=== PATIENT | male | born 1930 | race Caucasian/White ===

== ENCOUNTER 2018-01-11 19:40 | Inpatient (IN) | payer MEDICARE ==
[~2018-01-11] VITALS: Ht 185.4 cm; Wt 82.6 kg
--- NOTE | 2018-01-11 19:40 | NUR ---
PT DAKSHAA BLS TO ER BED 09
[2018-01-11 19:43] VITALS: BP 129/77
[2018-01-11] MEDS ORDERED: NACL 0.9% 500 ML IV SCH (19:43)
[2018-01-11] MEDS ORDERED: NACL 0.9% 500 ML IV ONE (19:45)
--- NOTE | 2018-01-11 19:53 | NUR ---
87/M BIBA. PER CARE, PT WAS FOUND BY FAMILY "HAVING A HARD TIME GETTING AROUND." PT C/O GENERALIZED WEAKNESS X1 DAY. SKIN IS INTACT, PINK/WARM/DRY; AAOX4, PERRL, BEDREST AT THIS TIME, WALKER ASSISTED AT HOME; PT GUARDED, FLAT, FATIGUED. LUNGS CLEAR BL, BREATHING UNLABORED; HR EVEN AND REGULAR, BL PERIPHERAL PULSES PRESENT; BS ACTIVE X4, NO TENDERNESS TO PALPATION; PT DENIES ANY FEVER, CP, SOB, OR COUGH, N/V/D, DYSURIA AT THIS TIME; PT STATES 0/10 PAIN AT THIS TIME; VSS; PATIENT POSITIONED FOR COMFORT; HOB ELEVATED; BEDRAILS UP X2; BED DOWN.
--- NOTE | 2018-01-11 20:05 | NUR ---
PATIENT UNABLE TO PROVIDE URINE AT THIS TIME.
[2018-01-11 20:17] LABS: BASOPHILS % (AUTO) 0.3 % (0.0-2.0); EOSINOPHILS # (AUTO) 0.1 K/uL (0-0.4); EOSINOPHILS % (AUTO) 1.6 % (0.0-4.0); HEMATOCRIT 37.5 % (36-52); HEMOGLOBIN 12.7 g/dL (12.0-18.0); LYMPHOCYTES % (AUTO) 17.2 % (20.5-51.1); MEAN CORPUSCULAR HEMOGLOBIN 34 pg (27-31); MEAN CORPUSCULAR HGB CONC 34 g/dL (33-37); MEAN CORPUSCULAR VOLUME 100.4 fL (80-94); MONOCYTES # (AUTO) 0.4 K/uL (0.8-1.0); MONOCYTES % (AUTO) 7.6 % (1.7-9.3); NEUTROPHILS # (AUTO) 4.3 K/uL (1.8-7.7); NEUTROPHILS % (AUTO) 73.3 % (42.2-75.2); PLATELET COUNT (AUTO) 195 K/uL (140-450); RED BLOOD CELL COUNT(AUTO) 3.73 MIL/uL (4.20-6.10); RED CELL DISTRIBUTION WIDTH 13.6 % (11.6-13.7); WHITE BLOOD COUNT (AUTO) 5.9 K/uL (4.8-10.8)
[2018-01-11 20:34] LABS: ANION GAP 9.4 (8-16); CARBON DIOXIDE 30.5 mmol/L (21-32); CHLORIDE 108 mmol/L (98-107); CREATININE 1.2 mg/dL (0.7-1.3); GLUCOSE 115 mg/dL (74-106); POTASSIUM 3.9 mmol/L (3.5-5.1); SODIUM SERUM 144 mmol/L (136-145); UREA NITROGEN, BLOOD 28 mg/dL (7-18)
[2018-01-11 20:36] LABS: PROTHROMBIN TIME 11.6 secs (10.8-13.4)
[2018-01-11 20:40] LABS: ALBUMIN 3.1 g/dL (3.4-5.0); ASPARTATE AMINOTRANSFERASE 28 U/L (15-37); TOTAL BILIRUBIN 0.4 mg/dL (0.0-1.0)
--- NOTE | 2018-01-11 20:49 | NUR ---
ATTEMPTED TO COLLECT URINE, PT UNABLE TO COLLECT URINE AT THIS TIME, WILL ATTEMPT LATER
--- NOTE | 2018-01-11 21:55 | NUR ---
PT RESTING COMFORTABLY IN BED, RR EVEN AND UNLABORED. ALL NEEDS MET AT THIS TIME.
[2018-01-11] MEDS ORDERED: ACETAMINOPHEN 325 MG TAB PO PRN (22:35)
[2018-01-11] MEDS ORDERED: SIMV40TA1 PO (22:53)
--- NOTE | 2018-01-11 23:22 | NUR ---
Patient will be admitted to care of DR ZAMUDIO. Admited to TELE. Will go to room 107B. Belongings list completed. Report to SHAHRZAD JANE AT BEDSIDE
--- NOTE | 2018-01-11 23:30 | NUR ---
ADMITTED THIS 87 YEAR OLD MALE FROM ER PER MIGUEL WITH CC OF GENERALIZED WEAKNESS, AMBULATORY TO BED WITH ASSIST, ASSESSMENT DONE, PT AAOX3, FORGETFUL, ABLE TO FOLLOW COMMANDS, VITAL SIGNS STABLE, DENIES ANY PAIN, SKIN INTACT, ORIENTED TO ROOM AND CALL LIGHT, SAFETY MEASURES IN PLACE, SIDE RAILS UP AND BED ALARM ON, CALL LIGHT WITHIN REACH.
[2018-01-11 23:40] VITALS: BP 139/75
[2018-01-11] MEDS: NACL 0.9% 1,000 ML IV SCH (23:42)
[2018-01-11 23:44] LABS: APPEARANCE,URINE SL CLOUDY (CLEAR); BILIRUBIN,URINE NEGATIVE (NEGATIVE); BLOOD, URINE 3+ (NEGATIVE); COLOR,URINE YELLOW (YELLOW); LEUKOCYTE ESTERASE ,URINE 1+ (NEGATIVE); NITRITE, URINE NEGATIVE (NEGATIVE); PH,URINE 6.5 (5.0-9.0); UGLUCOSE NEGATIVE (NEGATIVE)
[2018-01-11 23:50] LABS: CHOL/HDL RATIO 2.4 (1-4.5); FREE T4 (FREE THYROXINE) 0.92 ng/dL (0.76-1.46); PHOSPHORUS 3.2 mg/dL (2.5-4.9); THYROID STIMULATING HORMONE 1.62 uIU/mL (0.34-3.74)
[2018-01-12 00:16] LABS: RBC,URINE TOO NUMEROUS TO COUN /HPF (0-5); WBC,URINE 80-100 /HPF (0-5)
--- NOTE | 2018-01-12 03:45 | NUR ---
PT TRIGGERED BED ALARM, PT TRYING TO GET OOB, IV OUT, CANNULA INTACT, PT WANTS TO GO TO BR, REINFORCE IN USING CALL LIGHT FOR ASSISTANCE, AMBULATED TO BR WITH MINIMAL ASSIST, VOIDED FREELY, VITAL SIGNS STABLE, DENIES ANY PAIN, NEW IV LINE STARTED ON RT FA GAUGE 22, IVF RESUMED, SIDE RAILS UP AND BED ALARM ON, MONITORED CLOSELY.
[2018-01-12 04:00] VITALS: BP 140/72
--- NOTE | 2018-01-12 05:05 | NUR ---
TALKED TO DR VALDIVIA REGARDING PT DOESN'T HAVE ANY DIET ORDER, HE SAID HE WILL PUT AN ORDER.
--- NOTE | 2018-01-12 05:30 | NUR ---
HEARD PT CALLING OUT "NURSE", SEEN PT AWAKE WANTS TO GO TO RESTROOM TO VOID, AMBULATED WITH MINIMAL ASSIST AND VOIDED FREELY, REINFORCE TO USE CALL LIGHT FOR ASSISTANCE, CALL LIGHT WITHIN REACH, SIDE RAILS UP AND BED ALARM ON, MONITORED CLOSELY.
--- NOTE | 2018-01-12 06:35 | NUR ---
PT SLEEPING, EASILY AROUSABLE, NO DISTRESS NOTED, SCD'S APPLIED TO BLE, MONITORED CLOSELY.
--- NOTE | 2018-01-12 06:49 | NUR ---
PATIENT HAS BEEN SCREENED AND CATEGORIZED MODERATE NUTRITION RISK. PATIENT WILL BE SEEN WITHIN 3-5 DAYS OF ADMISSION. 01/14/18-01/16/[address]
[2018-01-12] MEDS ORDERED: ACETAMINOPHEN 325 MG TAB PO PRN (07:15)
[2018-01-12] MEDS ORDERED: LORazepam 2 MG/ML VIAL IVP PRN (07:15)
[2018-01-12] MEDS ORDERED: POTASSIUM CHLORIDE 10 MEQ TABER PO PRN (07:15)
[2018-01-12] MEDS ORDERED: DOCUSATE SODIUM 100 MG GELCAP PO PRN (07:15)
--- NOTE | 2018-01-12 07:15 | NUR ---
PT AWAKE, NO SIGNS OF DISTRESS, REPORT GIVEN TO BUCK MADSEN FOR CONTINUITY OF CARE.
--- NOTE | 2018-01-12 07:16 | NUR ---
RECEIVED REPORT FROM RESTAURANT HOSTESS RN. PATIENT IS AAOX2 OR 3. HAS NO SIGNS AND SYMPTOMS OF ACUTE DISTRESS NOTED AT THIS TIME. HAS IV TO THE RIGHT FA 22G, RUNNING NS AT 50 ML/HR. SITE IS CLEAN, DRY, PATENT, AND INTACT. DISCUSSED PLAN OF CARE WITH PATIENT AND HE VERBALIZED UNDERSTANDING. HAS SCD'S ON. BED ALARM IS ON. FALL PRECAUTIONS ARE IN PLACE. BED IN LOWEST POSITION, SIDE RAILS UP X2, CALL LIGHT WITHIN REACH. WILL CONTINUE TO MONITOR.
[2018-01-12 08:00] VITALS: BP 140/72
--- NOTE | 2018-01-12 09:35 | NUR ---
SPOKE WITH PATIENTS REGARDING THE ADVANCED DIRECTIVE. SHE SAID SHE DOESN'T KNOW WHAT IT SAYS THAT MR TERRELL DOCTOR HAS IT. INFORMED HER THAT MR SOLOMON STATED TO THE HOP FARMER RN THAT IF ANYTHING HAPPENED HE DIDN'T WANT TO BE RESUSCITATED. SHE STATED SHE DIDN'T WANT TO TALK ABOUT THAT RIGHT NOW AND WOULD JUST LIKE TO TALK TO HER . INFORMED HER THAT HE WILL STAY A FULL CODE UNTIL FURTHER NOTICE. SHE SAID WELL THAT IS UP TO HIM.
[2018-01-12] MEDS: PANTOPRAZOLE 40 MG INJ VIAL IVP SCH (10:24)
[2018-01-12] MEDS: DOCUSATE SODIUM 100 MG GELCAP PO SCH ×2 (10:24→21:00)
[2018-01-12] MEDS ORDERED: ASPIRIN 325 MG TABEC PO SCH ×2 (10:58→12:00)
[2018-01-12] MEDS ORDERED: ECOTRIN 81 MG TABEC PO SCH (11:00)
[2018-01-12 12:00] VITALS: BP 131/65
[2018-01-12 16:00] VITALS: BP 108/64
--- NOTE | 2018-01-12 19:25 | NUR ---
ENDORSED PATIENT TO MANAGEMENT LIAISON RN FOR CONTINUITY OF CARE. PATIENT IN STABLE CONDITION.
--- NOTE | 2018-01-12 19:30 | NUR ---
RECEIVED REPORT FROM DAY SHIFT, PATIENT RESTING IN BED, AWAKE AND ORIENTED X2, NO S/S OF DISTRESS NOTED, RESPIRATION EVEN AND UNLABORED, ON ROOM AIR. IV TO THE RT FOREARM, PATENT AND INTACT. PLAN OF CARE DISCUSSED, PATIENT VERBALIZED UNDERSTANDING, CALL LIGHT WITHIN REACH, SAFETY MEASURE ENSURED, WILL CONTINUE TO MONITOR.
[2018-01-12 20:00] VITALS: BP 127/60
[2018-01-12] MEDS: NACL 0.9% 1,000 ML IV SCH (20:19)
--- NOTE | 2018-01-12 20:55 | NUR ---
PATIENT'S SON CAME AND TOLD ME THAT HE FORGOT TO BRING THE CODE STATUS PAPER. EXPLAINED TO THE SON THAT IF WE DON'T HAVE THE DNR PAPER ON FILE, IF ANYTHING HAPPENED, WE HAVE TO PROVIDE FULL CODE CARE. PATIENT'S SON VERBALIZED UNDERSTANDING, AND SAID," I WILL BRING IT TOMORROW."
[2018-01-12] MEDS: SIMVASTATIN 40 MG TAB PO SCH (21:00)
--- NOTE | 2018-01-12 22:09 | NUR ---
PATIENT WAS TRYING TO GET OUT OF THE BED AND YELLING," WHERE AM I, WHERE AM I." ASSISTED HIM BACK TO BED, BUT PATIENT BECAME AGITATED AND REFUSED TO STAY IN BED. BP 131/66, HR 60, RR 21, ATIVAN ADMINISTER ORDERED. SAFETY MEASURE ENSURED, WILL CONTINUE TO MONITOR.
--- NOTE | 2018-01-12 23:38 | NUR ---
PATIENT ASKED FOR FOOD. SANDWICH OFFERED, NO S/S OF DISTRESS NOTED, RESPIRATION EVEN AND UNLABORED, ON ROOM AIR. CALL LIGHT WITHIN REACH, SAFETY MEASURE ENSURED, WILL CONTINUE TO MONITOR.
[2018-01-12 23:40] VITALS: BP 136/70
--- NOTE | 2018-01-13 00:55 | NUR ---
PATIENT TRYING TO GET OUT OF THE BED, ASSISTED HIM BACK TO BED, NO S/S OF DISTRESS NOTED, RESPIRATION EVEN AND UNLABORED, CALL LIGHT WITHIN REACH, SAFETY MEASURE ENSURED, BED ALARM ON, WILL CONTINUE TO MONITOR.
--- NOTE | 2018-01-13 01:30 | NUR ---
PATIENT TRYING TO GET OUT OF BED, ASSISTED PATIENT TO THE RESTROOM, VOIDED X1, ASSISTED PATIENT BACK TO BED, CALL LIGHT WITHIN REACH, SAFETY MEASURE ENSURED, WILL CONTINUE TO MONITOR.
--- NOTE | 2018-01-13 02:36 | NUR ---
PT TRYING TO GET OUT OF THE BED, ASSISTED HIM BACK TO BED, PATIENT REFUSED STAYING IN BED AND BECAME AGITATED AND SAID," I HAVE TO LEAVE, I DON'T WANT STAY HERE." INFORMED PATIENT THAT HE IS IN THE HOSPITAL, BUT PATIENT STILL TRYING TO GET OUT OF THE BED, BP 141/70, HR 60, ATIVAN ADMINISTERED ORDERED. CALL LIGHT WITHIN REACH, SAFETY MEASURE ENSURED, WILL CONTINUE TO MONITOR.
[2018-01-13 04:00] VITALS: BP 134/71
--- NOTE | 2018-01-13 05:47 | NUR ---
NOTED BLOODY URINE, MADE DR. VALDIVIA AWARE. NO ORDER RECEIVED AT THIS TIME.
[2018-01-13 06:35] LABS: BASOPHILS % (AUTO) 0.6 % (0.0-2.0); EOSINOPHILS # (AUTO) 0.3 K/uL (0-0.4); EOSINOPHILS % (AUTO) 3.9 % (0.0-4.0); HEMATOCRIT 37.2 % (36-52); HEMOGLOBIN 12.7 g/dL (12.0-18.0); LYMPHOCYTES # (AUTO) 1.3 K/uL (2.0-11.5); LYMPHOCYTES % (AUTO) 18.4 % (20.5-51.1); MEAN CORPUSCULAR HEMOGLOBIN 34 pg (27-31); MEAN CORPUSCULAR HGB CONC 34 g/dL (33-37); MEAN CORPUSCULAR VOLUME 100.4 fL (80-94); MONOCYTES # (AUTO) 0.5 K/uL (0.8-1.0); MONOCYTES % (AUTO) 6.5 % (1.7-9.3); NEUTROPHILS # (AUTO) 5.1 K/uL (1.8-7.7); NEUTROPHILS % (AUTO) 70.6 % (42.2-75.2); PLATELET COUNT (AUTO) 185 K/uL (140-450); RED BLOOD CELL COUNT(AUTO) 3.71 MIL/uL (4.20-6.10); RED CELL DISTRIBUTION WIDTH 13.6 % (11.6-13.7); WHITE BLOOD COUNT (AUTO) 7.3 K/uL (4.8-10.8)
[2018-01-13 07:01] LABS: ANION GAP 7.9 (8-16); CARBON DIOXIDE 27.1 mmol/L (21-32); CHLORIDE 105 mmol/L (98-107); CREATININE 1.1 mg/dL (0.7-1.3); GLUCOSE 116 mg/dL (74-106); SODIUM SERUM 137 mmol/L (136-145); UREA NITROGEN, BLOOD 20 mg/dL (7-18)
--- NOTE | 2018-01-13 07:28 | NUR ---
ENDORSED PLAN OF CARE TO DAY SHIFT, PATIENT RESTING IN BED, IN STABLE CONDITION.
--- NOTE | 2018-01-13 07:29 | NUR ---
RECEIVED REPORT FROM FIRE EXTINGUISHER MECHANIC RN. PATIENT IS AAOX 1. HAS NO SIGNS AND SYMPTOMS OF ACUTE DISTRESS NOTED AT THIS TIME. HAS IV TO THE RIGHT FA 22G, RUNNING NS AT 50 ML/HR. SITE IS CLEAN, DRY, PATENT, AND INTACT. DISCUSSED PLAN OF CARE WITH PATIENT AND REINFORCEMENT IS NEEDED. HAS SCD'S ON. BED ALARM IS ON. FALL PRECAUTIONS ARE IN PLACE. BED IN LOWEST POSITION, SIDE RAILS UP X3, CALL LIGHT WITHIN REACH. WILL CONTINUE TO MONITOR.
[2018-01-13 08:00] VITALS: BP 145/78
--- NOTE | 2018-01-13 08:20 | NUR ---
ASSISTED PATIENT TO THE RESTROOM BUT HE DIDN'T MAKE IT ALL THE WAY AND URINATED ON THE FLOOR. NOTICED A RED TINGE TO THE URINE.
[2018-01-13] MEDS: LACTOBACILLUS RHAMNOSUS GG 1 EACH CAP PO SCH (09:32)
[2018-01-13] MEDS: DOCUSATE SODIUM 100 MG GELCAP PO SCH ×2 (09:33→20:54)
[2018-01-13] MEDS: ECOTRIN 81 MG TABEC PO SCH (09:33)
[2018-01-13] MEDS: PANTOPRAZOLE 40 MG INJ VIAL IVP SCH (09:34)
--- NOTE | 2018-01-13 11:40 | NUR ---
PATIENTS URINE IN URINAL IS DARK BROWN. LET DR TANNER KNOW AND SHE IS AWARE ALREADY. STATED IT IS BECAUSE OF THE UTI. NO NEW ORDERS AT THIS TIME.
[2018-01-13 12:00] VITALS: BP 138/69
[2018-01-13] MEDS ORDERED: KCL 20 MEQ/WATER INJ PREMIX 200 ML IV SCH (13:00)
[2018-01-13] MEDS: CHLORHEXADINE GLUC 2% CLOTH TP SCH (14:32)
[2018-01-13] MEDS: MUPIROCIN 2% OINT 22 GM TUBE TP SCH (14:34)
--- NOTE | 2018-01-13 15:20 | NUR ---
LET DR NELSON KNOW THAT PATIENTS URINE IS STILL DARK BROWN. SHE ORDERED AN ULTRASOUND OF THE KIDNEYS.
[2018-01-13 16:00] VITALS: BP 133/64
--- NOTE | 2018-01-13 19:30 | NUR ---
ENDORSED PATIENT TO ACCT EXEC RN FOR CONTINUITY OF CARE. PATIENT IN STABLE CONDITION.
--- NOTE | 2018-01-13 19:31 | NUR ---
RECEIVED REPORT FROM DAY SHIFT NURSE. AAOX1. NO S/S OF DISTRESS. NO C/O PAIN. IV TO RIGHT HAND #20G, K RIDER INFUSING WELL. SAFETY PRECAUTION IN PLACE. CALL LIGHT WITHIN REACH.
[2018-01-13 20:00] VITALS: BP 132/71
[2018-01-13] MEDS: NACL 0.9% 1,000 ML IV SCH (20:00)
[2018-01-13] MEDS: SIMVASTATIN 40 MG TAB PO SCH (20:54)
--- NOTE | 2018-01-13 21:05 | NUR ---
DUE MEDS GIVEN. PT TOLERATED WELL. NO C/O PAIN OR DISCOMFORT NOTED.
--- NOTE | 2018-01-13 22:50 | NUR ---
PT TRYING TO GET OUT OF THE BED. ASSISTED BACK TO BED. PT CONFUSED. SAFETY PRECAUTION IN PLACE.
--- NOTE | 2018-01-13 23:15 | NUR ---
INFORMED DR. LAL PT CONFUSED AND STILL TRYING TO GET OUT OF THE BED. PER DR. LAL, HE WILL ORDER SEROQUEL 25 MG PO. WILL CARRY OUT ORDER.
[2018-01-13] MEDS: QUEtiapine FUMARATE 25 MG TAB PO PRN (23:23)
--- NOTE | 2018-01-13 23:25 | NUR ---
SEROQUEL 25 MG PO GIVEN. PT ASKED FOR CEREAL WITH MILK. CEREAL WITH MILK PROVIDED AND ASSISTED PT TO EAT. PT TOLERATED WELL.
[2018-01-13] MEDS ORDERED: QUEtiapine FUMARATE 25 MG TAB PO SCH (23:45)
[2018-01-14] VITALS: BP 146/77
--- NOTE | 2018-01-14 00:45 | NUR ---
PT STILL TRYING TO GET OUT OF BED. ORDERED SEROQUEL 25 MG PO ONCE GIVEN. DR. LAL IN THE ROOM TALKING TO PT.
[2018-01-14] MEDS ORDERED: LORazepam 2 MG/ML VIAL ONE (01:08)
--- NOTE | 2018-01-14 01:12 | NUR ---
PT STILL TRYING TO GET OUT OF BED, AGITATED. DR. LAL ORDERED ATIVAN 1 MG IVP, GIVEN.
[2018-01-14] MEDS ORDERED: LORazepam 2 MG/ML VIAL IM/IVP SCH (01:30)
[2018-01-14] MEDS ORDERED: HALOPERIDOL IM 5 MG/ML VIAL IM ONE (01:30)
[2018-01-14] MEDS ORDERED: HALOPERIDOL IM 5 MG/ML VIAL ONE (01:34)
--- NOTE | 2018-01-14 01:40 | NUR ---
PT TRYING TO GET OUT OF BED. ORDERED HALDOL 5MG IM GIVEN. Addendum: 01/14/18 at 0307 by Lizbeth Ramos RN WRONG TIME
--- NOTE | 2018-01-14 02:26 | NUR ---
PT TRYING TO GET OUT OF BED. ORDERED HALDOL 5MG IM GIVEN
--- NOTE | 2018-01-14 02:46 | NUR ---
PT SLEEPING. NO DISTRESS NOTED. SAFETY PRECAUTION IN PLACE.
--- NOTE | 2018-01-14 03:00 | NUR ---
PT AWAKE AND TRYING TO GET OUT OF BED. PT DOESN'T KNOW WHERE HE WANTS TO GO. ASSISTED BACK TO BED. FALL PRECAUTION IN PLACE.
--- NOTE | 2018-01-14 03:30 | NUR ---
PT SLEPT FOR 5-10 MINS THEN WOKE UP TRYING TO GET OUT OF BED. ASSISTED BACK TO BED BUT STILL TRYING TO GET UP. SAFETY PRECAUTION IN PLACE.
[2018-01-14 04:00] VITALS: BP 132/74
[2018-01-14] MEDS ORDERED: diphenhydrAMINE 50 MG/ML VIAL IVP SCH (04:00)
--- NOTE | 2018-01-14 04:40 | NUR ---
PT VOIDED WITH DARK BROWN URINE. NO C/O PAIN OR DISCOMFORT. Addendum: 01/14/18 at 0737 by Lizbeth Ramos RN DAY SHIFT RESIDENT/DOCTOR AWARE OF DARK BROWN URINE AND ORDERED RENAL ULTRASOUND.
--- NOTE | 2018-01-14 05:05 | NUR ---
PT STILL TRYING TO GET OUT OF BED. DR. LAL ORDERED BENADRYL 25 MG IVP, GIVEN. NO DISTRESS NOTED.
--- NOTE | 2018-01-14 06:30 | NUR ---
PT SLEEPING. NO S/S OF DISTRESS NOTED. PT KEPT DRY AND COMFORTABLE. SAFETY PRECAUTION IN PLACE.
--- NOTE | 2018-01-14 07:05 | NUR ---
ENDORSED PT TO DAY SHIFT NURSE. PT IN STABLE CONDITION.
[2018-01-14 07:21] LABS: BASOPHILS % (AUTO) 0.2 % (0.0-2.0); EOSINOPHILS # (AUTO) 0.1 K/uL (0-0.4); EOSINOPHILS % (AUTO) 1.1 % (0.0-4.0); HEMATOCRIT 39.8 % (36-52); HEMOGLOBIN 13.8 g/dL (12.0-18.0); LYMPHOCYTES # (AUTO) 0.7 K/uL (2.0-11.5); MEAN CORPUSCULAR HEMOGLOBIN 35 pg (27-31); MEAN CORPUSCULAR HGB CONC 35 g/dL (33-37); MEAN CORPUSCULAR VOLUME 99.7 fL (80-94); MONOCYTES # (AUTO) 0.4 K/uL (0.8-1.0); MONOCYTES % (AUTO) 5.2 % (1.7-9.3); NEUTROPHILS # (AUTO) 6.2 K/uL (1.8-7.7); NEUTROPHILS % (AUTO) 83.5 % (42.2-75.2); PLATELET COUNT (AUTO) 174 K/uL (140-450); RED BLOOD CELL COUNT(AUTO) 3.99 MIL/uL (4.20-6.10); RED CELL DISTRIBUTION WIDTH 13.6 % (11.6-13.7); WHITE BLOOD COUNT (AUTO) 7.4 K/uL (4.8-10.8)
--- NOTE | 2018-01-14 07:30 | NUR ---
RECEIVED REPORT FROM MEDICAL TERMINOLOGIST NURSE. PT IS AWAKE, DROWSY, OX1. NO S/S OF DISTRESS ON ROOM AIR. NO C/O PAIN. IV TO RIGHT HAND #22G. SAFETY PRECAUTION IN PLACE. CALL LIGHT WITHIN REACH.
[2018-01-14 08:00] VITALS: BP 139/69
[2018-01-14 08:08] LABS: CREATININE 0.9 mg/dL (0.7-1.3); GLUCOSE 127 mg/dL (74-106); UREA NITROGEN, BLOOD 15 mg/dL (7-18)
[2018-01-14 08:39] LABS: ANION GAP 12.1 (8-16); CHLORIDE 105 mmol/L (98-107); POTASSIUM 3.1 mmol/L (3.5-5.1); SODIUM SERUM 139 mmol/L (136-145)
[2018-01-14] MEDS: DOCUSATE SODIUM 100 MG GELCAP PO SCH ×2 (09:40→21:06)
[2018-01-14] MEDS: ECOTRIN 81 MG TABEC PO SCH (09:40)
--- NOTE | 2018-01-14 09:40 | NUR ---
ASPIRIN AND COLACE WERE GIVEN BY STUDENT WITH HER INSTRUCTOR
[2018-01-14] MEDS: LACTOBACILLUS RHAMNOSUS GG 1 EACH CAP PO SCH (09:51)
[2018-01-14] MEDS: PANTOPRAZOLE 40 MG INJ VIAL IVP SCH (09:52)
[2018-01-14] MEDS: NACL 0.9% 1,000 ML IV SCH (11:28)
[2018-01-14 12:00] VITALS: BP 132/74
--- NOTE | 2018-01-14 12:00 | NUR ---
Social Service Notes: I attempted to contact Patient's Bernadine Benson to discuss and gather Patient's Information. No response at the time and I left a voice mail MSG with my contact Inf and a request for a call back.
--- NOTE | 2018-01-14 13:00 | NUR ---
Security Shift Supervisor Notes: These fiction and nonfiction writer prose call [facility] at and spoke to Paz from admissions in regards to patient's inquiry for short term placement for physical Therapy and IV. Per Paz agreed to review patient's information and will call back with updates. I faxed Patient's clinical Packet, information and MD Order at .
--- NOTE | 2018-01-14 14:30 | NUR ---
PT IS AGITATED. WANTS TO GET OUT OF BED. HOWEVER, PT'S GAIT IS UNSTEADY. NOTIFIED DR CHOI. DR WILL SEE THE PT.
[2018-01-14] MEDS ORDERED: LORazepam 2 MG/ML VIAL IVP PRN (14:35)
--- NOTE | 2018-01-14 14:35 | NUR ---
Detailer Furniture Notes: These brief writer call [facility] at and spoke to Bindu from admissions in regards to patient's inquiry for short term placement for physical Therapy and IV. Per Bindu agreed to review patient's information and will call back with updates. I faxed Patient's clinical Packet, information and MD Order at .
[2018-01-14] MEDS: QUEtiapine FUMARATE 25 MG TAB PO PRN (14:36)
[2018-01-14] MEDS ORDERED: QUEtiapine FUMARATE 25 MG TAB PO SCH ×2 (14:39→21:00)
--- NOTE | 2018-01-14 14:40 | NUR ---
Head Of Conservation Notes: These contract technical writer call [facility] at and spoke to Sridevi from admissions in regards to patient's inquiry for short term placement for physical Therapy and IV. Per Sridevi agreed to review patient's information and will call back with updates. I faxed Patient's clinical Packet, information and MD Order at .
[2018-01-14] MEDS: MUPIROCIN 2% OINT 22 GM TUBE TP SCH (14:43)
[2018-01-14] MEDS: CHLORHEXADINE GLUC 2% CLOTH TP SCH (14:43)
--- NOTE | 2018-01-14 14:47 | NUR ---
FAXED INITIAL REVIEW TO [facility] [phone] PHONE DARREN [phone]
--- NOTE | 2018-01-14 14:50 | NUR ---
Hand Hose Cutter Notes: These senior grant writer call [facility] at and spoke to Lili from admissions in regards to patient's inquiry for short term placement for physical Therapy and IV. Per Lili agreed to review patient's information and will call back with updates. I faxed Patient's clinical Packet, information and MD Order at .
--- NOTE | 2018-01-14 14:55 | NUR ---
SEROQUEL PO GIVEN, PT IS NOW SITTING IN THE WHEEL CHAIR WITH SEAT BELT ON. PT IS CALMER RIGHT NOW.
[2018-01-14] MEDS ORDERED: POTASSIUM CHLORIDE 10 MEQ TABER PO SCH (15:00)
--- NOTE | 2018-01-14 15:05 | NUR ---
HELPED PT TO THE TOILET, PT HAD BM AND URINE. HEMATURIA NOTED. MD WAS AWARE. US KIDNEY AND BLADDER WAS DONE YESTERDAY.
[2018-01-14 16:00] VITALS: BP 110/78
--- NOTE | 2018-01-14 16:00 | NUR ---
Button Decorating Machine Operator Notes: Fouzia from [facility] at Call me back stating that they have beds open in their facility and will like to come and meet patient at [facility] for assessment within the next couple hours. Stated that there is a possibility for Patient to be accepted in their facility and will be contacting Patient's son as well following up with these copywriter tomorrow with information and updates. These copywriter agreed and ended call.
--- NOTE | 2018-01-14 16:10 | NUR ---
PT KEEPS TRYING TO GET OUT OF BED. PT IS CONFUSED THINKS HE IS AT HOME. REORIENTED PT BUT DID NOT WORK. PLACED PT IN THE WHEELCHAIR WITH SEAT BELT.
--- NOTE | 2018-01-14 16:25 | NUR ---
PT IS PLACED CLOSE TO NURSING STATION. PT IS AGITATED TRYING TO GET OUT OF WHEEL CHAIR. NOTIFIED DR CHOI WHO ORDERED ATIVAN IVP 0.5MG
--- NOTE | 2018-01-14 18:00 | NUR ---
NURSE FROM [facility] SEEN THE PT, SHE SAID WILL DISCUSS WITH BUDDER AND PROBABLY WILL TAKEN THE PT TOMORROW.
--- NOTE | 2018-01-14 18:40 | NUR ---
PT'S SON BROUGHT ADVANCED DIRECTIVE DRAFT AND MEDICATION LIST, MADE A COPY AND MADE MD AWARE.
--- NOTE | 2018-01-14 18:45 | NUR ---
PHYSICAL THERAPY CO-SIGN The Physical Therapy Progress Notes documented by Senior Interior Designer have been reviewed. Reviewed/Co-Signed by: Sana Ferreira DPT Documentation Done by: Frank Renee PTA Patient yulia tx well, limited in OOB activity yulia d/t being lethargic today, cont with PT POC as yulia/safe. Addendum: 01/14/18 at 1846 by Sana Ferreira PT Amended: Links added.
--- NOTE | 2018-01-14 19:05 | NUR ---
PT PLACE BACK TO BED. NO S/S OF ACUTE DISTRESS AT THIS TIME
--- NOTE | 2018-01-14 19:30 | NUR ---
REPORT GIVEN TO EXECUTIVE ADMIN RN AT BEDSIDE FOR CONTINUE OF CARE, PT IS IN STABLE CONDITION AT THIS TIME.
--- NOTE | 2018-01-14 19:31 | NUR ---
PATIENT REPORT RECEIVED FROM MORNING NURSE AT BEDSIDE. PATIENT IN WHEELCHAIR. MORNING NURSE HELPED ME ASSIST PATIENT BACK TO BED. PATIENT IS AOX1. NO SIGNS AND SYMPTOMS OF DISTRESS NOTED. NO C/O PAIN AT THIS TIME. PLAN OF CARE DISCUSSED WITH PATIENT. REINFORCEMENT NEEDED. BED IN LOWEST POSITION, SIDE RAILS UP AND CALL LIGHT WITHIN REACH. WILL CONTINUE TO MONITOR.
[2018-01-14 20:00] VITALS: BP 145/68
--- NOTE | 2018-01-14 20:30 | NUR ---
MEDICATION EDUCATION GIVEN. MEDICATION GIVEN ORDERED. PATIENT TOLERATED WELL. WILL CONTINUE TO MONITOR.
--- NOTE | 2018-01-14 21:00 | NUR ---
PATIENT GOT OUT OF BED. ASSISTED PATIENT TO THE RESTROOM. PATIENT VOIDED. ASSISTED HIM BACK TO BED. Addendum: 01/15/18 at 0137 by Saman Sauer RN WRONG TIME [id number]
--- NOTE | 2018-01-14 21:00 | NUR ---
PATIENT TRIED TO GET OUT OF BED TRIED TO REORIENT HIM TO HOSPITAL SETTING. REINFORCEMENT NEEDED.
[2018-01-14] MEDS: SIMVASTATIN 40 MG TAB PO SCH (21:07)
--- NOTE | 2018-01-14 22:00 | NUR ---
PATIENT KEEPS TRYING TO GET OUT OF BED. ASSISTED HIM TO WHEELCHAIR. PATIENT IN HALLWAY EATING BRYAN CRACKERS AND READING NEWSPAPER.
[2018-01-14] MEDS: diphenhydrAMINE 50 MG/ML VIAL IVP PRN (22:11)
--- NOTE | 2018-01-14 23:45 | NUR ---
PATIENT AGITATED. KEEPS TRYING TO GET OUT OF WHEELCHAIR. TRIED TO REORIENT PATIENT. NOTIFIED DR. LAL. MEDS ADMINISTERED ORDERED.
[2018-01-15] VITALS: BP 138/62
[2018-01-15] MEDS ORDERED: diphenhydrAMINE 50 MG/ML VIAL IVP SCH
--- NOTE | 2018-01-15 01:30 | NUR ---
ASSISTED PATIENT BACK TO BED. BED ALARM ON AND SAFETY PRECAUTIONS IN PLACE. WILL CONTINUE TO MONITOR.
--- NOTE | 2018-01-15 02:39 | NUR ---
CHECKED ON PATIENT. PATIENT IS ASLEEP. NO SIGNS AND SYMPTOMS OF DISTRESS NOTED. BREATHING EVEN AND UNLABORED. WILL CONTINUE TO MONITOR.
[2018-01-15] MEDS ORDERED: METO25TE71 PO ×2 (03:51)
[2018-01-15] MEDS ORDERED: FINA5TAB1 PO (03:51)
[2018-01-15] MEDS ORDERED: RIVA20TA PO (03:51)
[2018-01-15] MEDS ORDERED: TAMS0.4C96 PO (03:51)
[2018-01-15] MEDS ORDERED: MIRT15TA PO (03:51)
[2018-01-15] MEDS ORDERED: AMLO10TA PO (03:51)
[2018-01-15 04:00] VITALS: BP 130/69
--- NOTE | 2018-01-15 04:53 | NUR ---
CHECKED ON PATIENT. PATIENT IS ASLEEP. NO SIGNS AND SYMPTOMS OF DISTRESS NOTED. BREATHING EVEN AND UNLABORED. WILL CONTINUE TO MONITOR.
[2018-01-15] MEDS: NACL 0.9% 1,000 ML IV SCH (05:09)
--- NOTE | 2018-01-15 06:15 | NUR ---
PATIENT PULLED OUT IV SITE. IV CANNULA INTACT. NEW IV INSERTED RIGHT AC, 22 GAUGE. PATIENT TOLERATED WELL
[2018-01-15] MEDS: diphenhydrAMINE 50 MG/ML VIAL IVP PRN (06:19)
[2018-01-15] MEDS ORDERED: POTASSIUM CHLORIDE 10 MEQ TABER PO SCH ×2 (06:20→12:20)
--- NOTE | 2018-01-15 07:10 | NUR ---
PATIENT REPORT GIVEN TO MORNING NURSE AT BEDSIDE. PATIENT IS IN STABLE CONDITION
[2018-01-15 07:17] LABS: FOLIC ACID 15.6 ng/mL (>3.0)
--- NOTE | 2018-01-15 07:30 | NUR ---
RECEIVED REPORT FROM SEWING MACHINE ADJUSTER NURSE. PT IS SLEEPING, EASILY AROUSED, DROWSY, OX1. NO S/S OF DISTRESS ON ROOM AIR. NO C/O PAIN. IV TO RIGHT AC #22G. SAFETY PRECAUTION IN PLACE. CALL LIGHT WITHIN REACH.
[2018-01-15 08:00] VITALS: BP 143/70
[2018-01-15 08:09] LABS: BASOPHILS % (AUTO) 0.1 % (0.0-2.0); EOSINOPHILS # (AUTO) 0.1 K/uL (0-0.4); EOSINOPHILS % (AUTO) 0.9 % (0.0-4.0); HEMATOCRIT 35.6 % (36-52); HEMOGLOBIN 12.3 g/dL (12.0-18.0); LYMPHOCYTES # (AUTO) 0.6 K/uL (2.0-11.5); LYMPHOCYTES % (AUTO) 8.6 % (20.5-51.1); MEAN CORPUSCULAR HEMOGLOBIN 35 pg (27-31); MEAN CORPUSCULAR HGB CONC 35 g/dL (33-37); MEAN CORPUSCULAR VOLUME 99.9 fL (80-94); MONOCYTES # (AUTO) 0.5 K/uL (0.8-1.0); MONOCYTES % (AUTO) 7.1 % (1.7-9.3); NEUTROPHILS % (AUTO) 83.3 % (42.2-75.2); PLATELET COUNT (AUTO) 155 K/uL (140-450); RED BLOOD CELL COUNT(AUTO) 3.56 MIL/uL (4.20-6.10); RED CELL DISTRIBUTION WIDTH 13.5 % (11.6-13.7); WHITE BLOOD COUNT (AUTO) 7.2 K/uL (4.8-10.8)
[2018-01-15 08:15] LABS: ANION GAP 13.2 (8-16); CARBON DIOXIDE 24.5 mmol/L (21-32); CHLORIDE 105 mmol/L (98-107); CREATININE 1.2 mg/dL (0.7-1.3); GLUCOSE 117 mg/dL (74-106); POTASSIUM 3.7 mmol/L (3.5-5.1); SODIUM SERUM 139 mmol/L (136-145); UREA NITROGEN, BLOOD 24 mg/dL (7-18)
[2018-01-15] MEDS: ECOTRIN 81 MG TABEC PO SCH (08:22)
[2018-01-15] MEDS: DOCUSATE SODIUM 100 MG GELCAP PO SCH (08:23)
[2018-01-15] MEDS: LACTOBACILLUS RHAMNOSUS GG 1 EACH CAP PO SCH (08:25)
[2018-01-15] MEDS: PANTOPRAZOLE 40 MG INJ VIAL IVP SCH (08:39)
[2018-01-15] MEDS ORDERED: FINASTERIDE 5 MG TAB PO SCH (09:00)
[2018-01-15] MEDS ORDERED: METOPROLOL 25 MG TAB PO SCH (09:00)
[2018-01-15] MEDS ORDERED: RIVAROXABAN 10 MG TAB PO SCH (09:00)
[2018-01-15] MEDS ORDERED: amLODIPine 5 MG TAB PO SCH (09:00)
[2018-01-15] MEDS ORDERED: TAMSULOSIN 0.4 MG CAP PO SCH (09:00)
[2018-01-15] MEDS ORDERED: QUEtiapine FUMARATE 25 MG TAB PO SCH ×2 (09:00)
[2018-01-15 12:00] VITALS: BP 133/75
--- NOTE | 2018-01-15 12:00 | NUR ---
Paraffiner Notes: I received a call from [facility]mission staff Fouzia ; Stating that she had come to [facility] to asses patient for admission; unfortunately after patient's son discuss Patient's resistance at night with her client support administrator; per Fouzia Patient was declined for their facility due to behaviors. I discuss with Fouzia about Patient's cooperation and compliance during his hospitalization at [facility]. Per Fouzia she will address and will review issue with regulatory administrator however; till any changes Patient is not accepted at their SNF. I documented and ended call.
[2018-01-15] MEDS: CHLORHEXADINE GLUC 2% CLOTH TP SCH (14:00)
--- NOTE | 2018-01-15 14:00 | NUR ---
NOTIFIED DR CHOI HEMATURIA, DR SAID HE WILL COME AND EVALUATE PT.
--- NOTE | 2018-01-15 14:43 | NUR ---
Customer Service Officer Notes: I call Patient's son Jeff Benson at to discuss patient's status and challenges getting Patient accepted by SNF, with no responses yet from different facilities and a denial from [facility] due to Patient's behaviors. Patient's Son Jeff Verbalized understanding and stated that he will be picking up and taking Patient home at time of discharge if there is no SNF acceptance by then. Patient's son Thanked me for information and patient's status updated.
--- NOTE | 2018-01-15 14:57 | NUR ---
PHYSICAL THERAPY CO-SIGN The Physical Therapy Progress Notes documented by Hand Rug Braider have been reviewed. I CONCUR W/BUCKLER AND LACER NOTE; CONT PER TX PLAN Reviewed/Co-Signed by: Ellen Lucia, PT Documentation Done by: KAROL FLAHERTY PTA Addendum: 01/15/18 at 1457 by Ellen Lucia PT Amended: Links added.
[2018-01-15] MEDS: MUPIROCIN 2% OINT 22 GM TUBE TP SCH (15:00)
--- NOTE | 2018-01-15 15:05 | NUR ---
Construction Sales Representative Notes: I Call Patient's son Jeff Benson to inform him about Patient's recent denial for SNF by Insurance and MD order for Discharge with Home health for today. Patient's son Jeff Verbalized understanding and stated that he will be able to pepper picker and take Patient home today after discharge. Per Jeff he will be picking up patient at about 5:00pm.
[2018-01-15] MEDS ORDERED: QUET25TA46 PO (15:36)
[2018-01-15] MEDS ORDERED: LEVO500T98 PO (15:36)
[2018-01-15] MEDS ORDERED: QUET100T44 PO (15:36)
[2018-01-15 16:00] VITALS: BP 116/64
[2018-01-15] MEDS ORDERED: QUET100T PO (16:01)
--- NOTE | 2018-01-15 16:04 | NUR ---
FAXED CONCURRENT REVIEW TO [facility] [phone] PHONE DARREN [phone] RECEIVED A CALL EARLIER FROM DARREN FROM [facility]. THEY HAVE DENIED SNF FOR P.T. SHE SAID THEY COULD ARRANGE HOME HEALTH P.T. IF ORDERED. FAXED OR FOR HOME HEALTH P.T. I CALLED [employer]ING CEMENT[employer]BASKETB[employer] REFEREE AT [facility], [place], PHONE [phone]. SHE SAID SHE WOULD SET UP HOME HEALTH WITH [facility] PHONE [phone].
--- NOTE | 2018-01-15 18:55 | NUR ---
PT DISCHARGED PER MD ORDER. DISCHARGE INSTRUCTIONS AND MED TEACHING GIVEN TO PT AND HIS SON. BOTH VERBALIZED UNDERSTANDING. MADE PT AND HIS SON AWARE THAT PT NEEDS TO SEE UROLOGIST AN OUTPT. PT IS AAOX2, PT DENIES ANY PAIN. IV DC'D, TIP INTACT, BLEEDING CONTROLLED. HELPED PT GET DRESSED. PT LEFT IN STABLE CONDITION AND WITH ALL HIS BELONGINGS. SON SIGNED THE DISCHARGE PAPER. WHEELED PT OUT TO HIS VEHICLE. Addendum: 01/15/18 at 1859 by Mikal Enrique RN DISCHARGE TIME IS 1720.
[2018-01-15] MEDS ORDERED: MIRTAZAPINE 15 MG TAB PO SCH (21:00)
[2018-01-15] MEDS ORDERED: QUEtiapine FUMARATE 100 MG TAB PO SCH (21:00)
== END 2018-01-15 17:20 | disposition home or self-care (01) | DRG 56 ==
LOC: MED 19:40 → MTU 22:36
PROVIDERS: ADMIT General Practice; ATTEND General Practice
DX: G30.9 Alzheimer's disease, unspecified (principal); N17.0 Acute kidney failure with tubular necrosis; G93.41 Metabolic encephalopathy; E44.0 Moderate protein-calorie malnutrition; N39.0 Urinary tract infection, site not specified; D75.89 Other specified diseases of blood and blood-forming organs; E86.0 Dehydration; E78.5 Hyperlipidemia, unspecified; F02.80 Dementia in other diseases classified elsewhere, unspecified severity, without behavioral disturbance, psychotic disturbance, mood disturbance, and anxiety; E87.6 Hypokalemia; Z79.899 Other long term (current) drug therapy; Z68.24 Body mass index [BMI] 24.0-24.9, adult; Z22.322 Carrier or suspected carrier of Methicillin resistant Staphylococcus aureus
CPT/HCPCS: 36415; 70450; 71045; 76770; 80048; 80053; 81001; 82140; 82150; 82607; 82746; 83036; 83605; 83690; 83735; 83880; 84100; 84439; 84443; 84484; 85025; 85610; 85730; 87040; 87081; 87086; 93005; 93880; 96360; 96361; 97110; 97116; 97530; 99285; C9113; J0696; J1200; J1630; J2060; J3480; J7030; J7060; Q0092